=== PATIENT | male | born 1930 | race Caucasian/White ===

== ENCOUNTER → 2017-03-10 | Outpatient (CLI) | payer MEDICARE, OTHER ==
--- NOTE | 2017-03-10 17:02 | CARDNUC ---
[place] [address] CARDIAC NUCLEAR IMAGING REPORT Name: LYNNETTE ROSALES Room: [facility]#: [id number] Admission: 03/10/17 Attend Phys: Kwaku Irvin, Discharge: Date of : 34 Date of Service: 03/10/17 1702 Report #: [id number] THIS REPORT FOR: //name// APPROVED REPORT Exam: Nuclear Stress Test Indication: Pre-Operative CV evaluation Patient Location: Out-Patient Stress Tech: Christina Rosales Stress Nurse: Cammy Colmenares RN Ht: 6 ft 2 in Wt: 232 lbs BSA: 2.31 m2 BMI: 29.78 Medical History Medical History: mi, pci, hyperlipidemia, hypertension, former smoker Medications: coreg, aspirin Allergies: nkda Cardiac Risk Factors: age, hyperlipidemia, hypertenson, former smoker Previous Cardiac Procedures: pci with stent Exercise History: Indeterminate Meds Held (24 hrs): did not hold coreg Stress Test Details Stress Test: Pharmacologic stress testing performed using 0.4 mg of regadenoson per 5 mL given IV over 10 seconds. Reason for pharmacologic stress test: physical limitation. HR Resting HR: 62 bpm Max Heart Rate (APMHR): 136 bpm Max HR Achieved: 78 bpm Target HR (85% APMHR): 115 bpm % of APMHR: 57 Recovery HR: 81 bpm BP Resting BP: 156/78 mmHg Max BP: 145/64 mmHg ECG Resting ECG: Sinus Rhythm, normal EKG Stress ECG: Sinus Rhythm, normal EKG ST Change: None Arrhythmia: [place] [address] CARDIAC NUCLEAR IMAGING REPORT Name: LYNNETTE ROSALES Room: [facility]#: [id number] Admission: 03/10/17 Attend Phys: Kwaku Irvin, Discharge: Date of : 34 Date of Service: 03/10/17 1702 Report #: [id number] Recovery ECG: Sinus Rhythm, normal EKG Recovery ST Change: None Recovery Arrhythmia: None Clinical Reason for Termination: Completed protocol Stress Symptoms: none Exercise duration: 0 min sec Exercise capacity: 1 METs The patient tolerated Lexiscan infusion without symptoms. Nurse Comments pt tolerated well Stress ECG Conclusion The baseline 12-lead EKG showed normal sinus rhythm with no significant ST or T wave abnormalities. EKGs obtained during and post Lexiscan infusion showed sinus rhythm with no significant ST or T wave changes when compared to baseline. There were no stress-induced arrhythmias. NM EXAM: Myocardial Perfusion REST/STRESS Imaging Protocol: Rest Tc-99m/Stress Tc-99m 1 day Resting Data Rest SPECT myocardial perfusion imaging was performed in supine position 30 minutes following the intravenous injection of 11.2 mCi of Tc-99m Sestamibi. Time of rest injection: 0945 Time of rest imagin The images were gated to evaluate regional wall motion and calculate left ventricular ejection fraction. Administration Route: IV Administration Site: Right AC Pharmacologic Stress Pharmacologic stress test was performed by injecting Regadenoson 0.4 mg IV push followed by the intravenous injection of 36.0 mCi of Tc-99m Sestamibi. Time of stress injection: 1120 Time of stress imagin Administration Route: IV Administration Site: Right AC Heart Rate at time of stress injection: 78 bpm. Gated Stress SPECT was performed 40 minutes [place] [address] CARDIAC NUCLEAR IMAGING REPORT Name: LYNNETTE ROSALES Room: [facility]#: [id number] Admission: 03/10/17 Attend Phys: Kwaku Irvin, Discharge: Date of : 34 Date of Service: 03/10/17 1702 Report #: [id number] The images were gated to evaluate regional wall motion and calculate left ventricular ejection fraction. Study Quality Study: Good Artifact: Moderate Diaphragmatic artifact Study Data At rest, the left ventricular ejection fraction was 64%.. Post stress, the left ventricular ejection was 81%.. TID = 0.70. Perfusion There is a moderate region of photopenia involving the inferior wall on both stress and rest images. Review of the raw data shows diaphragmatic attenuation. Gated study showed normal wall motion in this region. Findings consistent with diaphragmatic attenuation artifact. Wall Motion Normal left ventricular wall motion. Nuclear Conclusion ECG Findings: negative for ischemia Clinical Findings: negative for ischemia Nuclear Findings: negative for ischemia Exercise Capacity: not assessed Left Ventricular Function: normal Risk Study: low Myocardial perfusion images show photopenia on both rest and stress images of the inferior wall consistent with diaphragmatic attenuation artifact. There is global normal LV systolic function. There are no defects to suggest ischemia. This is a low risk study. <Conclusion> The baseline 12-lead EKG showed normal sinus rhythm with no significant ST or T wave abnormalities. EKGs obtained during and post Lexiscan infusion showed sinus rhythm with no significant ST or T wave changes when compared to baseline. There were no stress-induced arrhythmias. <ELECTRONICALLY SIGNED> By: Aidan Andrade MD, FACC 03/10/171701 01 01 Aidan Andrade MD, FACC /INF
== END ==
LOC: M.NUC 09:03
DX: Z01.818 Encounter for other preprocedural examination (principal); I21.3 ST elevation (STEMI) myocardial infarction of unspecified site; E78.5 Hyperlipidemia, unspecified; I10 Essential (primary) hypertension; Z87.891 Personal history of nicotine dependence; Z95.5 Presence of coronary angioplasty implant and graft

== ENCOUNTER → 2018-11-01 | Day surgery (SDC) | payer MEDICARE, OTHER ==
[~2018-11-01] MED LIST: ALLOPURINOL 10100 M1 PO; BREO ELLIPTA 11 EACH INH; COREG6.25 MG PO; HYTRIN 2MG CAPSU2 M1 PO; LIPITOR10 MG PO; SYNTHROID125 MC1 PO; TRAMADOL 50 MG50 MG PO; TUMS PO; VITAMIN D2000 UNIT PO
--- NOTE | ~2018-11-01 | OP ---
[address] [address] OPERATIVE REPORT Name: LYNNETTE ROSALES Room: [facility]#: [id number] Admission: 11/01/18 Attend Phys: Abraham Martel MD Discharge: Date of : 34 Report #: [id number] THIS REPORT FOR: //name// CC: Cyndy Chacon Abraham Martel DICTATED BY: Fausto Colon DO DATE OF SERVICE: 11/01/2018 Fausto Colon DO, PGY-[address] Abrhaam Martel. PREOPERATIVE DIAGNOSIS: End-stage renal disease. POSTOPERATIVE DIAGNOSIS: End-stage renal disease. PROCEDURE PERFORMED: Right brachiocephalic arteriovenous fistula. SURGEON: Abraham Martel MD YEAST MAKER: Fausto Colon DO, PGY-3 and JOSE JUAN Sweeney. COMPLICATIONS: None. ESTIMATED BLOOD LOSS: 50. FINDINGS: Normal vascular anatomy of the right upper extremity. ANESTHESIA: General. IMPLANTS: None. HISTORY OF PRESENT ILLNESS: The patient is an 87-year-old male with history of end-stage renal disease in need of more permanent dialysis access. Vein mapping did reveal the veins in the right upper extremity. So, it was decided to proceed with a right brachiocephalic arteriovenous fistula. DESCRIPTION OF PROCEDURE: After consent was obtained, the patient was taken to the operating room and placed in the supine position. SCDs applied to bilateral lower extremities, safety belt placed across the patient's waist, antibiotics were given for surgical prophylaxis. The patient underwent general anesthesia without any complication. The patient was then prepped and draped in a standard sterile fashion. Timeout was performed to confirm the patient and procedure. Attention was turned towards the right upper extremity. A transverse incision was made just above the brachial artery pulse, in the crease of the elbow, right upper extremity with a 15-blade scalpel. The cephalic [place] [address] OPERATIVE REPORT Name: BOBBYLYNNETTE DE LOS SANTOS Room: [facility]#: [id number] Admission: 11/01/18 Attend Phys: Abraham Martel MD Discharge: Date of : 34 Report #: [id number] combination of electrocautery and blunt dissection with Metzenbaum scissors. Once the vein was isolated, attention was turned towards the brachial artery. Metzenbaum scissors were used to cut away tissue and isolate the artery and once the artery was isolated, the distal cephalic vein was tied off with a 3-0 silk and cut. The vein was freed from its surrounding attachments and brought over towards the artery. The top part of the vein was marked with a marker to prevent any torsion. The opening of the vein was further opened using Nunez scissors to create a long enough segment of vein for the anastomosis. An arteriotomy was made using 11 blade scalpel and extended with Nunez scissors. After the artery was circumferentially dissected and 2-vessel loops were placed on either side of the artery, the patient was heparinized. The cephalic vein was brought over, 6-0 Prolene was used to suture the cephalic vein to the brachial artery circumferentially. Once the anastomosis was completed, vessel loops were released and blood flow was restored to the artery. There was a good thrill, palpable thrill, in the cephalic vein. There was some tension on the cephalic vein. Therefore, more proximal attachments to the cephalic vein were released with Metzenbaum scissors. A small venotomy was created and this was oversewn with 2 stitches of 6-0 Prolene in a [id number] fashion. Once all bleeding was controlled, Ryan was placed on the wound bed. A 3-0 Vicryl was used to close the subcutaneous tissue in a running fashion and a 4-0 Monocryl was used to close the skin. Skin glue was applied over the wound and the patient was awoken from general anesthesia in stable condition. All counts were correct at the end of the case. The patient was transferred to PACU in stable condition. By: 1456 [id number] Martel MD /christian
[2018-11-01 13:04] LABS: HEMATOCRIT 30.7 % (42.0-52.0); HEMOGLOBIN 10.2 gm/dL (14.0-18.0); MCH 30.5 pg (26.0-34.0); MCHC 33.1 g/dL (28.0-37.0); MCV 92.1 fL (80.0-100.0); MPV 7.1 fl. (7.2-11.1); RBC 3.33 mil/uL (4.50-6.00); WBC 7.6 thou/uL (4.0-11.0)
[2018-11-01 13:16] LABS: CALCIUM 8.6 mg/dL (8.5-10.1); CREATININE 4.4 mg/dL (0.6-1.3); POTASSIUM 4.4 mmol/L (3.5-5.1)
[2018-11-01 13:20] LABS: ALBUMIN 2.5 g/dL (3.4-5.0); TOTAL BILIRUBIN 0.4 mg/dL (<0.1-1.0); TOTAL PROTEIN 6.2 g/dL (6.4-8.2)
--- NOTE | 2018-11-01 14:41 | EKG ---
[place] [address] ELECTROCARDIOGRAM REPORT Name: LYNNETTE ROSALES Room: [facility]#: [id number] Admission: 11/01/18 Attend Phys: Abraham Martel MD Discharge: Date of : 34 Report #: [id number] THIS REPORT FOR: //name// [facility] Test Date: 2018-11-01 Test Time: 12:38:08 Pat Name: LYNNETTE ROSALES Department: Room: Gender: M Python Web Developer: : 1930 Requested By: Abraham Martel Order Number: [id number] Reading MD: Luiz Garduno Measurements Intervals Jacob Rate: 76 P: 39 SD: 167 QRS: -25 QRSD: 91 T: 51 QT: 378 QTc: 426 Interpretive Statements Sinus rhythm Borderline left axis deviation Borderline low voltage, extremity leads No previous ECG available for comparison Electronically Signed On 11-01-2018 14:40:56 CDT by Luiz Garduno [email or web address] <ELECTRONICALLY SIGNED> By: Luiz Garduno MD, [facility] 11/01/18 1440 1238 1238 Luiz Garduno MD, FACC /EPI
== END | disposition home or self-care (01) ==
LOC: M.SUR 06:41
PROVIDERS: Surgery Vascular Surgery
DX: N18.6 End stage renal disease (principal); Z79.899 Other long term (current) drug therapy

== ENCOUNTER 2018-12-26 11:52 | Day surgery (SDC) | payer MEDICARE, OTHER ==
[2018-12-26 12:34] LABS: HEMATOCRIT 31.4 % (42.0-52.0); HEMOGLOBIN 10.5 gm/dL (14.0-18.0); MCH 31.1 pg (26.0-34.0); MCHC 33.4 g/dL (28.0-37.0); MCV 93.4 fL (80.0-100.0); MPV 6.2 fl. (7.2-11.1); RBC 3.37 mil/uL (4.50-6.00); WBC 8.1 thou/uL (4.0-11.0)
[2018-12-26 12:42] LABS: CALCIUM 8.6 mg/dL (8.5-10.1); CREATININE 4.7 mg/dL (0.6-1.3); POTASSIUM 4.4 mmol/L (3.5-5.1)
[2018-12-26 12:46] LABS: ALBUMIN 2.7 g/dL (3.4-5.0); TOTAL BILIRUBIN 0.3 mg/dL (<0.1-1.0); TOTAL PROTEIN 6.4 g/dL (6.4-8.2)
--- NOTE | 2018-12-28 12:02 | OP ---
[address] [address] OPERATIVE REPORT Name: LYNNETTE ROSALES Room: [facility]#: [id number] Admission: 12/26/18 Attend Phys: Abraham Martel MD Discharge: Date of : 34 Report #: [id number] THIS REPORT FOR: //name// CC: Cyndy Chacon Abraham Martel DATE OF SERVICE: 12/26/2018 PREOPERATIVE DIAGNOSIS: End-stage renal disease. POSTOPERATIVE DIAGNOSIS: End-stage renal disease. PROCEDURE: Left upper extremity brachiocephalic arteriovenous fistula. SURGEON: Abraham Martel MD ACTIVITY LEADER: JOSE JUAN Carmichael COMPLICATIONS: None. ESTIMATED BLOOD LOSS: 10 mL. SPECIMEN: None. ANESTHESIA: General. COMPLICATIONS: None. INDICATIONS FOR PROCEDURE: The patient is a very pleasant 88-year-old white male with end-stage renal disease, who underwent right arm AV fistula formation by my partner, Dr. Rendon, several months ago. Unfortunately, this failed to develop. We plan for a left brachiocephalic AV fistula today. Informed consent was obtained from the patient with risks including, but not limited to bleeding, infection, need for further surgery, pain, , heart attack, stroke, steal syndrome. The patient understood these risks and was agreeable to proceed. DESCRIPTION OF PROCEDURE: The patient was taken to the OR and placed in the supine position. General anesthesia was initiated. Left arm was prepped and draped in usual sterile fashion. Timeout was performed. I created a transverse incision just above the antecubital fossa. Sharp and blunt dissections were carried down to cephalic vein. This was noted to be of adequate caliber for fistula formation. I then, in a similar fashion, dissected out the brachial artery. I controlled it proximally and distally. I ligated the cephalic vein distally with a silk suture. I passed a 3 and 4 dilator up the vein. There was some difficulty, but I was able to pass it successfully. I valvulotomized several valves. I transposed the vein over on to [place] [address] OPERATIVE REPORT Name: LYNNETTE ROSALES Room: [facility].#: [id number] Admission: 12/26/18 Attend Phys: Abraham Martel MD Discharge: Date of : 34 Report #: [id number] longitudinal arteriotomy and then created an end-to-side anastomosis using a running 6-0 Prolene suture. At the completion of the anastomosis, there was adequate hemostasis and good blood flow into the fistulized vein. There was a palpable thrill running up the arm. I irrigated the wound bed with antibiotic saline. I controlled bleeding as needed with electrocautery, ties, clips and Ryan. I closed the wound in multiple layers using 3-0 Vicryl and Monocryl for the skin. Incision was dressed with Dermabond. The patient tolerated the procedure well and was taken alert and awake to recovery room in good condition. All needle and instrument counts were correct at the end the case. <ELECTRONICALLY SIGNED> By: Abraham Martel MD 12/28/18 1202 1530 [id number] Martel MD /nt
== END 2018-12-26 15:58 | disposition home or self-care (01) ==
LOC: M.SUR 11:52
PROVIDERS: Surgery Vascular Surgery
DX: N18.6 End stage renal disease (principal); Z98.890 Other specified postprocedural states; Z79.899 Other long term (current) drug therapy